=== PATIENT | male | born 1985 | race Caucasian/White ===

== ENCOUNTER 2018-04-11 14:49 | Emergency (ER) | payer OTHER ==
[2018-04-11 14:53] VITALS: BP 141/81
--- NOTE | 2018-04-11 14:55 | EDPHY ---
H & P Stated Complaint: Right shoulder dislocation Time Seen by Provider: 04/11/18 14:55 HPI/ROS: HPI: This is a 32-year-old male who presents with Chief Complaint: Right shoulder dislocation Location: Right shoulder Quality: Injury, dislocation Duration: 1 hr prior to arrival Signs and Symptoms: No bleeding, no radiation, no numbness, no weakness, no tingling, no incontinence, + decreased range of motion, no swelling, + pain, no fever Timing: Acute, constant Severity: Moderate to severe Context: Patient is right-hand dominant, presents from [facility] complaining of right shoulder injury and dislocation. He reports he fell off of his snowboard and landed directly on the anterior shoulder. He reports that he has a history of dislocations and "this feels the same." Patient reports decreased range of motion and deformity in his right shoulder. Friend drove him to the emergency room. Denies LOC/head injury/neck pain/dizziness/nausea/ vomiting/amnesia. Lives in [place]. Here visiting. Modifying Factors: None Comment: ROS: A comprehensive 10 system review of systems is otherwise negative aside from elements mentioned in the history of present illness. MEDICAL/SURGICAL/SOCIAL HISTORY: Medical history: Generally healthy. Does not take any regular medications. Surgical history: Denies Social history: Employed. Never smoked. CONSTITUTIONAL: Moderate distress adult white male, awake and alert, cooperative and polite HEENT: Atraumatic and normocephalic. NECK: supple, no midline tenderness, flexion 45 degrees, extension 45 degrees, right and left lateral flexion 45 degrees. No meningismus. Cardiovascular: Normal S1/S2, regular rate, regular rhythm, without murmur rub or gallop. PULMONARY/CHEST: Symmetrical and nontender. no crepitus. Clear to auscultation bilaterally. Good air movement. No accessory muscle usage. ABDOMEN: Soft, nondistended, nontender, no ecchymosis. PELVIC: no pain with rocking; bilateral hips flexion 125 degrees, extension 30 degrees, with no pain internal rotation and no pain external rotation. BACK: No midline tenderness, no paraspinous spasm, deep tendon reflexes 2/2, no pain with straight leg raise, No foot drop. Achilles reflexes are equal bilaterally. Able to walk on heels and toes without difficulty. EXTREMITIES: 2/2 radial pulses, strength 5/5, right SHOULDER: Loss of normal contour of shoulder; elbow home held in 90 degree flexion with right upper extremity held against the chest. Patient unable to touch his ipsilateral left arm. Right ELBOW: Full extension to 180, flexion to 150, no tenderness over medial epicondyle, no tenderness over lateral epicondyle, no effusion. Right WRIST: Extension to 70, flexion to 80, radial deviation to 20 degree, ulnar deviation to 30, no scaphoid tenderness, no tenderness over ulnar styloid, no tenderness over radial styloid. no clubbing, no cyanosis or edema. NEUROLOGICAL: no focal neuro deficits. GCS 15. Light touch sensation intact. SKIN: Warm and dry, no erythema. no rash. Good capillary refill. Source: Patient Exam Limitations: No limitations - Personal History Current Tetanus/Diphtheria Vaccine: Yes - Medical/Surgical History Hx Asthma: No Hx Chronic Respiratory Disease: No Hx Diabetes: No Hx Cardiac Disease: No Hx Renal Disease: No Hx Cirrhosis: No Hx Alcoholism: No Other PMH: Denies - Social History Smoking Status: Never smoked Constitutional: Initial Vital Signs Temperature (C) 36.8 C 04/11/18 14:51 Heart Rate 62 04/11/18 14:51 Respiratory Rate 18 04/11/18 14:51 Blood Pressure 141/81 H 04/11/18 14:51 O2 Sat (%) 99 04/11/18 14:51 O2 Delivery Mode Room Air Allergies/Adverse Reactions: No Known Allergies Allergy (Unverified 04/11/18 14:53) Home Medications: Medication Instructions Recorded NK [No Known Home Meds] 04/11/18 Medical Decision Making - Diagnostics Imaging Results: Imaging Impressions Shoulder X-Ray 04/11/18 15:05 Impression: 1. Hill-Sachs fracture deformity right humeral head. 2. No humeral neck fracture. 3. No dislocation. Findings and recommendations given to Navya Mayfield PA-C at 1620 hours on April 11, 2018. Final report concurs with initial preliminary interpretation. Procedures: Procedure: Dislocation reduction. The dislocation of the right shoulder was reduced using Jose Carlos technique without complications. Post reduction the patient's neurovascular exam is normal. Post reduction x-ray demonstrates reduction of the joint to the anatomic position. The procedure was performed by myself. ED Course/Re-evaluation: Vital signs reviewed and stable upon arrival Patient given intranasal 100 mcg of fentanyl and 2 mcg of Ativan Patient reduced using the Jose Carlos technique on the 1st attempt. X-ray status post reduction shows normal anatomic alignment with mild Hill- Sachs deformity Placed in sling with orthopedic follow-up in [place] per patient request X-ray provided on disc No signs of neurovascular compromise/tenting of skin/compartment syndrome/ extremities and joints examined above and below area of concern and are neurovascularly intact. This patient was seen under the supervision of my secondary supervising physician. I evaluated care for this patient with attending. Discussed this patient with Dr. Washington. Differential Diagnosis: Differential diagnosis includes but is not limited to clavicle fracture, shoulder dislocation, humerus fracture. - Data Points Medications Given: Discontinued Medications Fentanyl (Sublimaze) 100 mcg NASAL EDNOW ONE Stop: 04/11/18 15:03 Last Admin: 04/11/18 15:04 Dose: 100 mcg Lorazepam (Ativan Injection) 2 mg NASAL EDNOW ONE Stop: 04/11/18 15:03 Last Admin: 04/11/18 15:04 Dose: 2 mg Departure - Departure Disposition: Home, Routine, Self-Care Clinical Impression: Hill Sachs deformity, right Anterior dislocation of right shoulder Qualifiers: Encounter type: initial encounter Qualified Code(s): S43.014A - Anterior dislocation of right humerus, initial encounter Condition: Good Instructions: Shoulder Dislocation (ED), How to Use a Sling (ED) Additional Instructions: Wear the sling continuously except to shower and until seen by Orthopedics. Take Tylenol 650 mg every 4 hours and/or Ibuprofen 600 mg every 8 hours with food as needed for pain. Apply ice for 30 minutes at a time; 2-3 times per day for the next 1-2 days. Follow up with Orthopedics in 5-7 days at which time they will evaluate and recommend with you if conservative management versus surgery is indicated. Return to the ER immediately if you experience new or worsening pain, discoloration, numbness, tingling, or any other symptoms that concern you. Referrals: Suki Traore MD [Medical Doctor] - As per Instructions
[2018-04-11] MEDS ORDERED: fentaNYL 100 MCG/2 ML INJ ONE (14:57)
[2018-04-11] MEDS ORDERED: LORazepam 2 MG/ML INJ ONE (14:57)
[2018-04-11] MEDS ORDERED: LORazepam 2 MG/ML INJ NASAL ONE (15:02)
[2018-04-11] MEDS ORDERED: fentaNYL 100 MCG/2 ML INJ NASAL ONE (15:02)
== END 2018-04-11 15:50 | disposition home or self-care (01) ==
PROC: 0RSJXZZ Reposition Right Shoulder Joint, External Approach (ICD-10-PCS; principal; 2018-04-11)
DX: S42.291A Other displaced fracture of upper end of right humerus, initial encounter for closed fracture (principal); S43.014A Anterior dislocation of right humerus, initial encounter; V00.311A Fall from snowboard, initial encounter; Y93.23 Activity, snow (alpine) (downhill) skiing, snowboarding, sledding, tobogganing and snow tubing; Y92.838 Other recreation area as the place of occurrence of the external cause; Y99.9 Unspecified external cause status
CPT/HCPCS: A4565; J2060; J3010